=== PATIENT | male | born 1945 | race African-American/Black ===

== ENCOUNTER 2021-11-01 13:48 | Inpatient (IN) | payer OTHER ==
[~2021-11-01] VITALS: Ht 190.5 cm; Wt 89.5 kg
[~2021-11-01 13:48] MED LIST: ACET-929 OR; ALLO300T2 PO; ALPR0.254 PO; CARVEDILOL; COLC1TAB3 PO; DIGOPOW2; ENAL10TA86; HYDR1CAP27 PO; KLOR-CON; LASIX; LEVO500T31 PO; MAGN250T19 PO; OMEPRAZOLE PO; PAROXETINE PO; PREDPOW63; TRAM50TA2 PO; TRAMADOL; XANAX; ZOLP10TA
[2021-11-01 16:39] LABS: Basophils # (auto) 0 10 ^3/uL (0-0.2); Eosinophils # (auto) 0 10 ^3/uL (0-0.8); Eosinophils % (auto) 0.4 % (0.0-7.0); Nucleated Red Blood Cells % 0.1 %
[2021-11-01 16:41] LABS: Basophils % (auto) 1.6 % (0.0-2.0); Hematocrit 14.9 % (41.0-53.0); Lymphocytes # (auto) 0.2 10 ^3/uL (0.4-5.4); Lymphocytes % (auto) 10.1 % (10.0-50.0); Mean Corpuscular Hemoglobin 33.5 pg (28.0-32.0); Mean Corpuscular Volume 98.4 fL (80.0-100.0); Monocytes # (auto) 0.3 10 ^3/uL (0-1.3); Monocytes % (auto) 12.6 % (0.0-12.0); Neutrophils # (auto) 1.6 10 ^3/uL (1.6-8.6); Neutrophils % (auto) 75.3 % (37.0-80.0); Red Blood Cells 1.51 10^6/uL (4.5-5.90); White Blood Cell 2.1 10^3/uL (4.4-10.8)
[2021-11-01 16:46] LABS: Red Cell Distribution Width 22.6 % (11.8-14.3)
[2021-11-01 16:49] LABS: Hemoglobin 5.1 g/dL (13.5-17.5)
[2021-11-01] MEDS ORDERED: LORazepam 2MG/ML-1ML VIAL ONE (16:49)
[2021-11-01 16:57] LABS: Albumin 2.4 g/dL (3.4-5.0); BUN/Creatinine Ratio 31.9; Calcium 8.6 mg/dL (8.5-10.1)
[2021-11-01 16:59] LABS: Lactic Acid w/Reflex 3.8 mmol/L (0.4-2.0)
[2021-11-01 17:00] LABS: Bilirubin, Total 1.6 mg/dL (0.2-1.0); Total Protein 5.9 g/dL (6.4-8.2)
[2021-11-01] MEDS ORDERED: LORazepam 2MG/ML-1ML VIAL IV ONE (17:00)
[2021-11-01 17:03] LABS: Potassium 2.3 mmol/L (3.5-5.1)
[2021-11-01] MEDS ORDERED: PIPERACILLIN-TAZOB 3.375GM 100 ML IV ONE (19:45)
[2021-11-01] MEDS ORDERED: VANCOMYCIN 1GM/250ML 250 ML IV ONE (19:45)
[2021-11-01] MEDS: POTASSIUM CHL 20MEQ/100ML 100 ML IV SCH ×2 (20:16→23:25)
[2021-11-01] MEDS ORDERED: DOBUTamine 1000MCG/ML 250 ML IV ONE (23:00)
[2021-11-01] MEDS ORDERED: LEVOTHYROXINE SODIUM 100 MCG/5 ML INJ IV ONE (23:30)
[2021-11-01] MEDS ORDERED: SODIUM CHLORIDE 0.9% 1,000 ML IV ONE ×2 (23:45)
[2021-11-02] VITALS (23 sets, daily range): BP systolic 85–134; BP diastolic 37–66
[2021-11-02] MEDS ORDERED: POTASSIUM CHL 20MEQ/100ML 100 ML IV ONE (03:00)
[2021-11-02] MEDS ORDERED: ACETAMINOPHEN 325 MG TAB PO PRN (03:00)
[2021-11-02] MEDS ORDERED: NITROGLYCERIN 0.4 MG SL TAB SL PRN (03:00)
[2021-11-02] MEDS ORDERED: MORPHINE SULFATE INJ 2 MG/ml SYRG IV PRN (03:00)
[2021-11-02] MEDS ORDERED: HYDROcodone-ACET 5/325MG TAB PO PRN (03:00)
[2021-11-02] MEDS: FUROSEMIDE 20 MG/2 ML VIAL IV SCH ×2 (06:00→18:27)
[2021-11-02] MEDS ORDERED: LIDOCAINE 2% JELLY 11ml (GLYDO) ONE (08:27)
[2021-11-02 08:39] LABS: White Blood Cell 3.2 10^3/uL (4.4-10.8)
[2021-11-02 08:41] LABS: Hematocrit 18.5 % (41.0-53.0); Mean Corpuscular Hgb Conc. 35.9 g/dL (32.0-36.0); Mean Corpuscular Volume 94.9 fL (80.0-100.0); Red Blood Cells 1.95 10^6/uL (4.5-5.90)
[2021-11-02 08:50] LABS: Red Cell Distribution Width 20.1 % (11.8-14.3)
[2021-11-02 08:53] LABS: Hemoglobin 6.6 g/dL (13.5-17.5); INR 1.2 (0.9-1.15)
[2021-11-02 08:54] LABS: BUN/Creatinine Ratio 33.7; Calcium 8.4 mg/dL (8.5-10.1)
[2021-11-02 08:55] LABS: Basophils % (manual) 0 (0.0-2.0); Blast Cells 0; Eosinophils % (manual) 0 (0-7); Metamyelocytes % 0; Myelocytes % 0; Promyelocytes % 0; Reactive Lymphocytes 0
[2021-11-02 09:04] LABS: Potassium 2.8 mmol/L (3.5-5.1)
[2021-11-02] MEDS: LEVOTHYROXINE SODIUM 50 MCG TAB PO SCH (09:30)
[2021-11-02] MEDS: cefTRIAXone 1GM/50ML D5W 50 ML IV SCH (09:30)
[2021-11-02 09:49] LABS: Band Neutrophils % (manual) 34; Lymphocytes % (manual) 10 (10.0-50.0); Monocytes % (manual) 11 (0-12)
[2021-11-02] MEDS ORDERED: HYDROmorphone HCL 2 MG/ML VL/or syr ONE (10:25)
[2021-11-02] MEDS: HYDROmorphone HCL 2 MG/ML VL/or syr IV PRN ×2 (11:03→21:06)
[2021-11-02] MEDS ORDERED: DOBUTamine 1000MCG/ML 250 ML IV ONE (11:28)
[2021-11-02] MEDS: POTASSIUM CHL 20MEQ/100ML 100 ML IV SCH ×2 (11:50→13:32)
[2021-11-02] MEDS: PANTOPRAZOLE 40 MG/10 ML VIAL INJ IV SCH (12:31)
[2021-11-02] MEDS: DOBUTamine 1000MCG/ML 250 ML IV SCH ×2 (15:27→21:11)
[2021-11-02] MEDS ORDERED: MAGN400T40 PO (16:55)
[2021-11-02] MEDS ORDERED: CHOL20007 PO (16:55)
[2021-11-02] MEDS ORDERED: ATOR40TA52 PO (16:55)
[2021-11-02] MEDS ORDERED: CITA-77 PO (16:55)
[2021-11-02] MEDS ORDERED: LEVO50TA7 PO (17:00)
[2021-11-02] MEDS ORDERED: DOCU100T15 PO (17:00)
[2021-11-02] MEDS ORDERED: MECL25TA18 PO (17:00)
[2021-11-02] MEDS ORDERED: SPIR50TA5 PO (17:00)
[2021-11-02] MEDS ORDERED: FOLI1TAB6 PO (17:00)
[2021-11-02] MEDS ORDERED: MULT-1018 PO (17:00)
[2021-11-02] MEDS ORDERED: CYA100I PO (17:04)
[2021-11-02] MEDS ORDERED: ASCO500T11 PO (17:04)
[2021-11-02] MEDS ORDERED: CYAN500L3 PO (17:04)
[2021-11-02] MEDS ORDERED: AMINOCAPROIC ACID IV ONE (17:15)
[2021-11-02] MEDS ORDERED: SODIUM CHL 0.9% IV ONE (17:15)
[2021-11-02] MEDS ORDERED: GABA100C9 PO (17:15)
[2021-11-02] MEDS ORDERED: ALLO100T PO (17:15)
[2021-11-02] MEDS ORDERED: BUME1TAB3 PO (17:15)
[2021-11-02] MEDS ORDERED: FER325T PO (17:15)
[2021-11-02] MEDS ORDERED: LORA0.5T20 PO (17:15)
[2021-11-02] MEDS ORDERED: AMIO200T33 PO (17:15)
[2021-11-02] MEDS ORDERED: POTA-220 PO (17:15)
[2021-11-02] MEDS ORDERED: LORazepam 0.5 MG TAB PO PRN (18:15)
[2021-11-02] MEDS ORDERED: LORazepam 0.5 MG TAB PO ONE (18:15)
[2021-11-02] MEDS: AMINOCAPROIC ACID IV SCH (19:13)
[2021-11-02] MEDS: SODIUM CHL 0.9% IV SCH (19:13)
[2021-11-02] MEDS: ONDANSETRON HCL 4 MG/2 ML VIAL IV PRN (21:47)
[2021-11-03] VITALS (19 sets, daily range): BP systolic 99–169; BP diastolic 44–149
[2021-11-03] MEDS: SODIUM CHL 0.9% IV SCH ×3 (00:39→11:39)
[2021-11-03] MEDS: AMINOCAPROIC ACID IV SCH ×3 (00:39→11:39)
[2021-11-03] MEDS: ONDANSETRON HCL 4 MG/2 ML VIAL IV PRN (01:16)
[2021-11-03] MEDS: HYDROmorphone HCL 2 MG/ML VL/or syr IV PRN ×3 (01:16→20:29)
[2021-11-03] MEDS: LORazepam 2MG/ML-1ML VIAL IV PRN ×2 (04:00→09:08)
[2021-11-03] MEDS: FUROSEMIDE 20 MG/2 ML VIAL IV SCH ×2 (05:35→17:53)
[2021-11-03] MEDS: LEVOTHYROXINE SODIUM 50 MCG TAB PO SCH (06:48)
[2021-11-03 08:19] LABS: Basophils # (auto) 0 10 ^3/uL (0-0.2); Eosinophils # (auto) 0 10 ^3/uL (0-0.8); Monocytes # (auto) 0.3 10 ^3/uL (0-1.3); Nucleated Red Blood Cells % 0.6 %
[2021-11-03] MEDS: DOBUTamine 1000MCG/ML 250 ML IV SCH ×2 (08:19→17:53)
[2021-11-03] MEDS: PANTOPRAZOLE 40 MG/10 ML VIAL INJ IV SCH (08:20)
[2021-11-03 08:21] LABS: Basophils % (auto) 0.7 % (0.0-2.0); Eosinophils % (auto) 0.1 % (0.0-7.0); Hematocrit 18.7 % (41.0-53.0); Lymphocytes # (auto) 0.1 10 ^3/uL (0.4-5.4); Lymphocytes % (auto) 3.3 % (10.0-50.0); Mean Corpuscular Hemoglobin 34.4 pg (28.0-32.0); Mean Corpuscular Hgb Conc. 35.3 g/dL (32.0-36.0); Mean Corpuscular Volume 97.6 fL (80.0-100.0); Monocytes % (auto) 7.3 % (0.0-12.0); Neutrophils # (auto) 3.6 10 ^3/uL (1.6-8.6); Neutrophils % (auto) 88.6 % (37.0-80.0); Red Blood Cells 1.92 10^6/uL (4.5-5.90); White Blood Cell 4.1 10^3/uL (4.4-10.8)
[2021-11-03 08:28] LABS: Red Cell Distribution Width 21.6 % (11.8-14.3)
[2021-11-03 08:29] LABS: Hemoglobin 6.6 g/dL (13.5-17.5)
[2021-11-03 08:39] LABS: Albumin 2.4 g/dL (3.4-5.0); Calcium 8.7 mg/dL (8.5-10.1)
[2021-11-03 08:43] LABS: BUN/Creatinine Ratio 28.5; Total Protein 5.7 g/dL (6.4-8.2)
[2021-11-03 08:48] LABS: Potassium 2.9 mmol/L (3.5-5.1)
[2021-11-03] MEDS: cefTRIAXone 1GM/50ML D5W 50 ML IV SCH (09:02)
[2021-11-03] MEDS ORDERED: POTASSIUM EFFERVESENT TAB 25 MEQ PO ONE (09:45)
[2021-11-03] MEDS ORDERED: TPN PER PHARMACY 0 ML IV SCH (10:45)
[2021-11-03] MEDS ORDERED: LORazepam 2MG/ML-1ML VIAL IM ONE (11:15)
[2021-11-03] MEDS: POTASSIUM CHL 20MEQ/100ML 100 ML IV SCH ×2 (12:33→14:22)
[2021-11-03] MEDS ORDERED: LORazepam 2MG/ML-1ML VIAL IV ONE (13:00)
[2021-11-03] MEDS ORDERED: HALOPERIDOL LACTATE 5 MG/ML INJ VIAL IM ONE (13:45)
[2021-11-03] MEDS ORDERED: LIDOCAINE 1% (LOCAL ANESTH.) PF 5ml SDV ID ONE (17:30)
[2021-11-03 19:37] LABS: Hematocrit 22.7 % (41.0-53.0); Hemoglobin 7.7 g/dL (13.5-17.5)
[2021-11-03 19:57] LABS: Magnesium 2.2 mg/dL (1.6-2.6); Phosphorus 5.2 mg/dL (2.5-4.90)
[2021-11-03] MEDS ORDERED: AMINO ACID INFUSION IN D10W 1,000 ML IV NR (20:00)
[2021-11-03] MEDS: SODIUM CHLOR 0.9% PF (SALINE LOCK) 10ML VIAL/SYR IV SCH (22:29)
[2021-11-04] VITALS (17 sets, daily range): BP systolic 85–124; BP diastolic 34–65
[2021-11-04] MEDS ORDERED: DEXTROSE (50%) 50ML SYRG IV SCH
[2021-11-04 01:56] LABS: Urine Bacteria NONE SEEN /hpf (None Seen); Urine Blood 3+ /uL (Negative); Urine Specific Gravity 1.022 (1.001-1.035); Urine WBC 43 /hpf (0 - 3)
[2021-11-04] MEDS: LORazepam 2MG/ML-1ML VIAL IV PRN ×3 (02:13→18:51)
[2021-11-04 02:34] LABS: Protein, Urine 1870.1 mg/dL (0.0-11.9)
[2021-11-04] MEDS: DOBUTamine 1000MCG/ML 250 ML IV SCH ×3 (04:32→22:22)
[2021-11-04 05:42] LABS: Basophils # (auto) 0 10 ^3/uL (0-0.2); Basophils % (auto) 0.5 % (0.0-2.0); Eosinophils # (auto) 0 10 ^3/uL (0-0.8); Hemoglobin 8.2 g/dL (13.5-17.5); Lymphocytes # (auto) 0.2 10 ^3/uL (0.4-5.4); Monocytes # (auto) 0.4 10 ^3/uL (0-1.3); White Blood Cell 4.9 10^3/uL (4.4-10.8)
[2021-11-04 05:45] LABS: Hematocrit 22.8 % (41.0-53.0); Lymphocytes % (auto) 4.4 % (10.0-50.0); Mean Corpuscular Hemoglobin 36.3 pg (28.0-32.0); Mean Corpuscular Hgb Conc. 36.1 g/dL (32.0-36.0); Mean Corpuscular Volume 100.7 fL (80.0-100.0); Monocytes % (auto) 7.6 % (0.0-12.0); Neutrophils # (auto) 4.3 10 ^3/uL (1.6-8.6); Neutrophils % (auto) 87.5 % (37.0-80.0); Nucleated Red Blood Cells % 0.4 %; Red Blood Cells 2.26 10^6/uL (4.5-5.90); Red Cell Distribution Width 19.6 % (11.8-14.3)
[2021-11-04] MEDS: InsuLIN REG 1unit/0.01ml Soln (100units/ml) SC SCH ×4 (06:00→17:30)
[2021-11-04] MEDS: ACCU-CHEK COMFORT CURVE STRIP VI SCH ×4 (06:00→17:30)
[2021-11-04 06:29] LABS: Magnesium 2.1 mg/dL (1.6-2.6); Potassium 3.6 mmol/L (3.5-5.1)
[2021-11-04] MEDS: LEVOTHYROXINE SODIUM 50 MCG TAB PO SCH (06:34)
[2021-11-04 06:36] LABS: Albumin 2.3 g/dL (3.4-5.0); BUN/Creatinine Ratio 22.2; Bilirubin, Total 1.8 mg/dL (0.2-1.0); Calcium 8.5 mg/dL (8.5-10.1); Phosphorus 5.3 mg/dL (2.5-4.90); Total Protein 5.5 g/dL (6.4-8.2)
[2021-11-04] MEDS: FUROSEMIDE 20 MG/2 ML VIAL IV SCH ×2 (06:36→17:27)
[2021-11-04] MEDS: PANTOPRAZOLE 40 MG/10 ML VIAL INJ IV SCH (09:01)
[2021-11-04] MEDS: cefTRIAXone 1GM/50ML D5W 50 ML IV SCH (09:01)
[2021-11-04] MEDS: SODIUM CHLOR 0.9% PF (SALINE LOCK) 10ML VIAL/SYR IV SCH ×2 (09:01→22:53)
[2021-11-04] MEDS: HYDROmorphone HCL 2 MG/ML VL/or syr IV PRN ×2 (10:13→14:49)
[2021-11-04] MEDS ORDERED: TPN PER PHARMACY IV NR ×8 (20:00)
[2021-11-04 21:54] LABS: Calcium 8.5 mg/dL (8.5-10.1); Potassium 3.5 mmol/L (3.5-5.1)
[2021-11-05] VITALS (26 sets, daily range): BP systolic 78–119; BP diastolic 28–61
[2021-11-05] MEDS: ACCU-CHEK COMFORT CURVE STRIP VI SCH ×4 (00:19→18:10)
[2021-11-05] MEDS: LORazepam 2MG/ML-1ML VIAL IV PRN ×3 (00:35→08:46)
[2021-11-05] MEDS: FUROSEMIDE 20 MG/2 ML VIAL IV SCH ×2 (06:00→18:00)
[2021-11-05] MEDS: InsuLIN REG 1unit/0.01ml Soln (100units/ml) SC SCH ×4 (06:34→18:01)
[2021-11-05] MEDS: LEVOTHYROXINE SODIUM 50 MCG TAB PO SCH (07:00)
[2021-11-05] MEDS: DOBUTamine 1000MCG/ML 250 ML IV SCH ×2 (07:35→18:10)
[2021-11-05 07:47] LABS: Albumin 1.8 g/dL (3.4-5.0); Calcium 7.4 mg/dL (8.5-10.1); Magnesium 2.2 mg/dL (1.6-2.6)
[2021-11-05 07:51] LABS: Bilirubin, Total 1.5 mg/dL (0.2-1.0); Phosphorus 4.1 mg/dL (2.5-4.90); Total Protein 4.5 g/dL (6.4-8.2)
[2021-11-05] MEDS: cefTRIAXone 1GM/50ML D5W 50 ML IV SCH (08:18)
[2021-11-05] MEDS: SODIUM CHLOR 0.9% PF (SALINE LOCK) 10ML VIAL/SYR IV SCH ×2 (09:24→20:20)
[2021-11-05] MEDS: PANTOPRAZOLE 40 MG/10 ML VIAL INJ IV SCH (09:24)
[2021-11-05] MEDS ORDERED: POTASSIUM CHL 20MEQ/100ML 100 ML IV ONE (10:30)
[2021-11-05] MEDS ORDERED: POTASSIUM CHL 20MEQ/100ML 100 ML IV SCH ×2 (10:30→10:45)
[2021-11-05 11:11] LABS: Basophils # (auto) 0.1 10 ^3/uL (0-0.2); Eosinophils # (auto) 0 10 ^3/uL (0-0.8); Lymphocytes # (auto) 0.1 10 ^3/uL (0.4-5.4); Monocytes # (auto) 0.3 10 ^3/uL (0-1.3); Neutrophils # (auto) 2.9 10 ^3/uL (1.6-8.6); White Blood Cell 3.3 10^3/uL (4.4-10.8)
[2021-11-05 11:13] LABS: Basophils % (auto) 1.7 % (0.0-2.0); Eosinophils % (auto) 0.3 % (0.0-7.0); Hematocrit 16.7 % (41.0-53.0); Lymphocytes % (auto) 2.4 % (10.0-50.0); Mean Corpuscular Hemoglobin 34.6 pg (28.0-32.0); Mean Corpuscular Hgb Conc. 34.5 g/dL (32.0-36.0); Mean Corpuscular Volume 100.1 fL (80.0-100.0); Monocytes % (auto) 7.6 % (0.0-12.0); Nucleated Red Blood Cells % 0.4 %; Red Blood Cells 1.67 10^6/uL (4.5-5.90)
[2021-11-05] MEDS: MORPHINE SULFATE INJ 2 MG/ml SYRG IV PRN (11:15)
[2021-11-05 11:38] LABS: Red Cell Distribution Width 20.1 % (11.8-14.3)
[2021-11-05 11:40] LABS: Hemoglobin 5.8 g/dL (13.5-17.5)
[2021-11-05] MEDS ORDERED: NOREPINEPHRINE 8 MG/250ML KIT 250 ML IV SCH (13:00)
[2021-11-05] MEDS ORDERED: TPN PER PHARMACY IV NR ×8 (20:00)
[2021-11-06] VITALS (14 sets, daily range): BP systolic 104–143; BP diastolic 46–64
[2021-11-06] MEDS: InsuLIN REG 1unit/0.01ml Soln (100units/ml) SC SCH ×4 (00:33→18:46)
[2021-11-06] MEDS: LORazepam 2MG/ML-1ML VIAL IV PRN ×2 (00:54→10:45)
[2021-11-06 02:01] LABS: Basophils # (auto) 0 10 ^3/uL (0-0.2); Basophils % (auto) 0.2 % (0.0-2.0); Eosinophils # (auto) 0 10 ^3/uL (0-0.8); Hematocrit 23.2 % (41.0-53.0); Hemoglobin 8.2 g/dL (13.5-17.5); Lymphocytes # (auto) 0.1 10 ^3/uL (0.4-5.4); Lymphocytes % (auto) 2.5 % (10.0-50.0); Mean Corpuscular Hemoglobin 34.2 pg (28.0-32.0); Mean Corpuscular Hgb Conc. 35.2 g/dL (32.0-36.0); Monocytes # (auto) 0.4 10 ^3/uL (0-1.3); Monocytes % (auto) 9.6 % (0.0-12.0); Neutrophils # (auto) 3.6 10 ^3/uL (1.6-8.6); Neutrophils % (auto) 87.7 % (37.0-80.0); Nucleated Red Blood Cells % 0.3 %; Red Blood Cells 2.39 10^6/uL (4.5-5.90); Red Cell Distribution Width 17.5 % (11.8-14.3); White Blood Cell 4.2 10^3/uL (4.4-10.8)
[2021-11-06] MEDS: DOBUTamine 1000MCG/ML 250 ML IV SCH ×3 (02:18→20:42)
[2021-11-06 05:05] LABS: Basophils # (auto) 0 10 ^3/uL (0-0.2); Eosinophils # (auto) 0 10 ^3/uL (0-0.8); Lymphocytes # (auto) 0.1 10 ^3/uL (0.4-5.4); Monocytes # (auto) 0.4 10 ^3/uL (0-1.3)
[2021-11-06 05:13] LABS: Basophils % (auto) 0.7 % (0.0-2.0); Eosinophils % (auto) 0.2 % (0.0-7.0); Hematocrit 23.1 % (41.0-53.0); Hemoglobin 8.4 g/dL (13.5-17.5); Lymphocytes % (auto) 1.6 % (10.0-50.0); Mean Corpuscular Hemoglobin 36.4 pg (28.0-32.0); Mean Corpuscular Hgb Conc. 36.1 g/dL (32.0-36.0); Mean Corpuscular Volume 100.9 fL (80.0-100.0); Monocytes % (auto) 8.9 % (0.0-12.0); Neutrophils # (auto) 3.7 10 ^3/uL (1.6-8.6); Neutrophils % (auto) 88.6 % (37.0-80.0); Nucleated Red Blood Cells % 0.4 %; Red Blood Cells 2.29 10^6/uL (4.5-5.90); White Blood Cell 4.2 10^3/uL (4.4-10.8)
[2021-11-06 05:30] LABS: Potassium 3.9 mmol/L (3.5-5.1)
[2021-11-06 05:37] LABS: Albumin 2.2 g/dL (3.4-5.0); BUN/Creatinine Ratio 15.7; Bilirubin, Total 1.7 mg/dL (0.2-1.0); Calcium 8.5 mg/dL (8.5-10.1); Magnesium 2.7 mg/dL (1.6-2.6); Phosphorus 3.9 mg/dL (2.5-4.90); Total Protein 5.6 g/dL (6.4-8.2)
[2021-11-06] MEDS: FUROSEMIDE 20 MG/2 ML VIAL IV SCH ×2 (06:06→18:00)
[2021-11-06] MEDS: LEVOTHYROXINE SODIUM 50 MCG TAB PO SCH (06:08)
[2021-11-06] MEDS: ACCU-CHEK COMFORT CURVE STRIP VI SCH ×4 (06:08→18:37)
[2021-11-06] MEDS: PANTOPRAZOLE 40 MG/10 ML VIAL INJ IV SCH (10:45)
[2021-11-06] MEDS: SODIUM CHLOR 0.9% PF (SALINE LOCK) 10ML VIAL/SYR IV SCH ×2 (10:45→21:45)
[2021-11-06] MEDS: cefTRIAXone 1GM/50ML D5W 50 ML IV SCH (13:13)
[2021-11-06] MEDS ORDERED: TPN PER PHARMACY IV NR ×9 (20:00)
[2021-11-07] MEDS: InsuLIN REG 1unit/0.01ml Soln (100units/ml) SC SCH ×4 (01:42→17:50)
[2021-11-07] MEDS: LORazepam 2MG/ML-1ML VIAL IV PRN ×3 (01:54→20:59)
[2021-11-07 05:31] LABS: Eosinophils # (auto) 0 10 ^3/uL (0-0.8); Monocytes # (auto) 0.4 10 ^3/uL (0-1.3); Neutrophils # (auto) 4.4 10 ^3/uL (1.6-8.6)
[2021-11-07 05:35] LABS: Basophils # (auto) 0 10 ^3/uL (0-0.2); Basophils % (auto) 0.6 % (0.0-2.0); Eosinophils % (auto) 0.2 % (0.0-7.0); Hematocrit 28.2 % (41.0-53.0); Hemoglobin 9.8 g/dL (13.5-17.5); Lymphocytes # (auto) 0.2 10 ^3/uL (0.4-5.4); Lymphocytes % (auto) 4.2 % (10.0-50.0); Mean Corpuscular Hemoglobin 35.3 pg (28.0-32.0); Mean Corpuscular Hgb Conc. 34.8 g/dL (32.0-36.0); Mean Corpuscular Volume 101.3 fL (80.0-100.0); Monocytes % (auto) 7.1 % (0.0-12.0); Neutrophils % (auto) 87.9 % (37.0-80.0); Nucleated Red Blood Cells % 0.2 %; Red Blood Cells 2.79 10^6/uL (4.5-5.90); Red Cell Distribution Width 19.4 % (11.8-14.3)
[2021-11-07] MEDS: DOBUTamine 1000MCG/ML 250 ML IV SCH ×2 (05:54→15:51)
[2021-11-07 06:00] LABS: Potassium 3.8 mmol/L (3.5-5.1)
[2021-11-07] MEDS: FUROSEMIDE 20 MG/2 ML VIAL IV SCH ×2 (06:00→18:00)
[2021-11-07] MEDS: ACCU-CHEK COMFORT CURVE STRIP VI SCH ×4 (06:00→18:00)
[2021-11-07 06:09] LABS: BUN/Creatinine Ratio 15.3; Bilirubin, Total 1.7 mg/dL (0.2-1.0); Calcium 8.8 mg/dL (8.5-10.1); Magnesium 2.5 mg/dL (1.6-2.6); Phosphorus 3.1 mg/dL (2.5-4.90); Total Protein 5.8 g/dL (6.4-8.2)
[2021-11-07] MEDS: LEVOTHYROXINE SODIUM 50 MCG TAB PO SCH (07:00)
[2021-11-07 09:00] VITALS: BP 129/66
[2021-11-07] MEDS: cefTRIAXone 1GM/50ML D5W 50 ML IV SCH (09:00)
[2021-11-07 09:59] LABS: Folate (Folic Acid) 16.69 ng/mL (5.38-24)
[2021-11-07] MEDS: SODIUM CHLOR 0.9% PF (SALINE LOCK) 10ML VIAL/SYR IV SCH ×2 (10:00→22:02)
[2021-11-07] MEDS: PANTOPRAZOLE 40 MG/10 ML VIAL INJ IV SCH (10:06)
[2021-11-07 10:40] LABS: INR 1.13 (0.9-1.15); Partial Thromboplastin Time 30.7 sec (23.6-33.0)
[2021-11-07 13:00] VITALS: BP 131/58
[2021-11-07 17:00] VITALS: BP 127/64
[2021-11-07] MEDS ORDERED: TPN PER PHARMACY IV NR ×8 (20:00)
[2021-11-07 22:00] VITALS: BP 113/66
[2021-11-08] MEDS: DOBUTamine 1000MCG/ML 250 ML IV SCH (00:18)
[2021-11-08] MEDS: ACCU-CHEK COMFORT CURVE STRIP VI SCH ×3 (00:27→13:55)
[2021-11-08] MEDS: InsuLIN REG 1unit/0.01ml Soln (100units/ml) SC SCH ×3 (00:29→12:40)
[2021-11-08] MEDS: LORazepam 2MG/ML-1ML VIAL IV PRN (01:14)
[2021-11-08 05:00] VITALS: BP 114/62
[2021-11-08] MEDS: FUROSEMIDE 20 MG/2 ML VIAL IV SCH (06:00)
[2021-11-08] MEDS: LEVOTHYROXINE SODIUM 50 MCG TAB PO SCH (06:26)
[2021-11-08 09:02] VITALS: BP 97/50
[2021-11-08 09:06] LABS: White Blood Cell 4.9 10^3/uL (4.4-10.8)
[2021-11-08 09:09] LABS: Hematocrit 24.8 % (41.0-53.0); Hemoglobin 8.9 g/dL (13.5-17.5); Mean Corpuscular Hemoglobin 35.1 pg (28.0-32.0); Mean Corpuscular Hgb Conc. 35.7 g/dL (32.0-36.0); Mean Corpuscular Volume 98.5 fL (80.0-100.0); Red Blood Cells 2.52 10^6/uL (4.5-5.90)
[2021-11-08 09:11] LABS: Basophils % (manual) 0 (0.0-2.0); Blast Cells 0; Eosinophils % (manual) 0 (0-7); Metamyelocytes % 0; Myelocytes % 0; Promyelocytes % 0; Reactive Lymphocytes 0
[2021-11-08 09:25] LABS: Albumin 1.7 g/dL (3.4-5.0); Calcium 8.6 mg/dL (8.5-10.1); Magnesium 2.7 mg/dL (1.6-2.6); Potassium 3.2 mmol/L (3.5-5.1)
[2021-11-08 09:29] LABS: BUN/Creatinine Ratio 16.1; Bilirubin, Total 1.6 mg/dL (0.2-1.0); Phosphorus 3.3 mg/dL (2.5-4.90); Total Protein 5.6 g/dL (6.4-8.2)
[2021-11-08] MEDS: PANTOPRAZOLE 40 MG/10 ML VIAL INJ IV SCH (10:00)
[2021-11-08 10:19] LABS: Band Neutrophils % (manual) 2; Lymphocytes % (manual) 2 (10.0-50.0); Monocytes % (manual) 7 (0-12)
[2021-11-08] MEDS ORDERED: POTASSIUM CHL 20MEQ/100ML 100 ML IV SCH (10:30)
[2021-11-08] MEDS: MORPHINE SULFATE INJ 2 MG/ml SYRG IV PRN (12:50)
[2021-11-08 13:00] VITALS: BP 129/97
[2021-11-08] MEDS ORDERED: MORPHINE SULFATE INJ 2 MG/ml SYRG IV PRN (13:00)
[2021-11-08 13:20] VITALS: BP 129/97
[2021-11-08] MEDS: SODIUM CHLOR 0.9% PF (SALINE LOCK) 10ML VIAL/SYR IV SCH (13:56)
[2021-11-08] MEDS ORDERED: TPN PER PHARMACY IV NR ×8 (20:00)
== END 2021-11-08 14:40 | DRG 291 ==
LOC: ER 13:48 → EDBD 13:48 → TELE 11-02 02:53 → DOU IN ICU 11-02 09:57 → TELE-WESTW 11-04 15:33
PROVIDERS: ADMIT Nurse Practitioner; ATTEND Internal Medicine Nephrology
PROC: 30233N1 Transfusion of Nonautologous Red Blood Cells into Peripheral Vein, Percutaneous Approach (ICD-10-PCS; principal; 2021-11-02)
PROC: 02HV33Z Insertion of Infusion Device into Superior Vena Cava, Percutaneous Approach (ICD-10-PCS; 2021-11-03)
PROC: B548ZZA Ultrasonography of Superior Vena Cava, Guidance (ICD-10-PCS; 2021-11-03)
DX: I13.0 Hypertensive heart and chronic kidney disease with heart failure and stage 1 through stage 4 chronic kidney disease, or unspecified chronic kidney disease (principal); J96.01 Acute respiratory failure with hypoxia; I50.23 Acute on chronic systolic (congestive) heart failure; G92.8 Other toxic encephalopathy; N17.0 Acute kidney failure with tubular necrosis; D62 Acute posthemorrhagic anemia; D61.818 Other pancytopenia; N30.40 Irradiation cystitis without hematuria; I42.8 Other cardiomyopathies; N18.31 Chronic kidney disease, stage 3a; E87.6 Hypokalemia; C61 Malignant neoplasm of prostate; E03.9 Hypothyroidism, unspecified; E11.22 Type 2 diabetes mellitus with diabetic chronic kidney disease; I50.84 End stage heart failure; C67.9 Malignant neoplasm of bladder, unspecified; N13.9 Obstructive and reflux uropathy, unspecified; R57.8 Other shock; Z66 Do not resuscitate; I48.91 Unspecified atrial fibrillation; M10.9 Gout, unspecified; F41.9 Anxiety disorder, unspecified; K80.20 Calculus of gallbladder without cholecystitis without obstruction; Z20.822 Contact with and (suspected) exposure to COVID-19; Z79.899 Other long term (current) drug therapy; Z82.0 Family history of epilepsy and other diseases of the nervous system; Z80.3 Family history of malignant neoplasm of breast; Z92.3 Personal history of irradiation; Z82.49 Family history of ischemic heart disease and other diseases of the circulatory system; Z85.46 Personal history of malignant neoplasm of prostate; Z85.51 Personal history of malignant neoplasm of bladder; Z86.73 Personal history of transient ischemic attack (TIA), and cerebral infarction without residual deficits; Z87.891 Personal history of nicotine dependence; Z85.05 Personal history of malignant neoplasm of liver; Z90.79 Acquired absence of other genital organ(s); Z95.1 Presence of aortocoronary bypass graft; Z95.810 Presence of automatic (implantable) cardiac defibrillator; Z85.72 Personal history of non-Hodgkin lymphomas; Z51.5 Encounter for palliative care
CPT/HCPCS: 36415; 36569; 36600; 70450; 71045; 74176; 76775; 80048; 80053; 81001; 82570; 82607; 82746; 82805; 82962; 83605; 83735; 83880; 84100; 84132; 84156; 84300; 84443; 84478; 84484; 85007; 85014; 85018; 85025; 85027; 85610; 85730; 86850; 86900; 86901; 86920; 87040; 87081; 93005; 93306; 96365; 96367; 96375; 99291; C9113; G0378; J0696; J1815; J2405; J2543; J3480; J3490; J7131